=== PATIENT | female | born 1960 | race Caucasian/White ===

== ENCOUNTER 2016-03-07 15:45 | Emergency (ER) | payer SELFPAY ==
[2016-03-07 16:22] VITALS: TEMP 97.4; BMI 27.1
[2016-03-07] MEDS ORDERED: NS 1,000 ML IV ONE ×2 (18:32→19:22)
[2016-03-07] MEDS ORDERED: MORPHINE 4 MG/ML INJECTION IV ONE (18:32)
[2016-03-07] MEDS ORDERED: ONDANSETRON HCL 4 MG/2 ML VIAL IV ONE (18:32)
--- NOTE | 2016-03-07 18:38 | EDPRACDOC ---
- General Information Chief Complaint: Nausea,Vomiting,Diarrhea Stated Complaint: N/V/D Time Seen by Provider: 03/07/16 18:29 Information Source: Patient Mode Of Arrival: Ambulance Home Medications: Home Medications Amlodipine [Norvasc] 10 mg PO DAILY 03/07/16 Fluoxetine HCl [Prozac] 40 mg PO DAILY 03/07/16 Lisinopril [Zestril] 10 mg PO DAILY 03/07/16 Metoprolol Tartrate [Lopressor] 200 mg PO BID 03/07/16 Pravastatin [Pravachol] 40 mg PO HS 03/07/16 Promethazine [Phenergan] 25 mg PO Q6H PRN #10 tab 03/07/16 - History of Present Illness Onset: 10 am HPI: PT DEVELOPED N/V/D AROUND 1000. PT SAID IT WOULD NOT STOP, SO SHE CALLED EMS. Symptoms Occured: Reports: Spontaneous Duration: Reports: Since Onset Recent: Reports: None Pain Severity: None History of: Reports: Abdominal Surgery Relevant History of: Reports: Abdominal Surgery Associated Signs & Symptoms: Reports: Nausea, Vomiting, Diarrhea Oral Intake: Decreased Urinary Output: Decreased - Treatment Prior to ED Arrival Reported Medications/Treatment [facility]IST[facility] [employer] EMS Treatment BLS ED Past Medical History - Patient Medical History Cardiac History: Reports: Hypertension Respiratory History: Reports: Asthma Surgical History: Reports: Appendectomy, Tonsillectomy/Adnoidectomy - Social Medical History Smoking Status: Light tobacco smoker (less than 5/day) ETOH: None Substance Abuse: None Lives In: Home EDM Review of Systems - Review of Systems ROS Negative Except as Marked: Yes All systems reviewed and were negative except as marked Gastrointestinal: Diarrhea, Nausea, Vomiting - Physical Exam Constitutional: Alert (Awake), Distress Oriented to: Time, Person, Place Last recorded Vital Signs: Last Vital Signs Temp 97.4 F L 03/07/16 16:10 Pulse 72 03/07/16 16:10 Resp 20 03/07/16 16:10 BP 115/57 L 03/07/16 16:10 Pulse Ox 96 03/07/16 16:10 Oxygen Pulse Oxygen Saturation 96 O2 Device Room Air Oxygen Flow Rate Fraction of Inspired Oxygen ( FIO2) - HEENT Head: Normal ( normocephalic) Eye Exam: Normal (PERRL, EOMI, Sclera white) Oropharynx: Membranes Dry ENT EAC: Normal TMJ: Normal Nose: No Symptoms Reported (septum midline) Neck: Normal (FROM, trachea at midline) - Respiratory/Cardiovascular Respiratory: Normal - CTA Cardiovascular: Normal - GI Auscultation: Normal (NABS) Palpation: Normal (Soft,No rebound or guarding, non distended) Tenderness: Non tender Navarro's Sign: Negative - Musculoskeletal Back: Normal (Non-Tender) Extremities: Normal (Normal tone, Pulses 2+ No cyanosis or edema, FROM) - Integumentary Skin: Normal, Warm, Dry Lymphatics: Normal (no adenopathy) - Neurologic Memory Impaired: Normal Motor Function: Normal (Normal tone, Pulses 2+ No cyanosis or edema, FROM) Cranial Nerve: Normal (CN II-X11 intact sensation, strength 5/5) Cerebellar: Normal Mood Description: Normal Thought: Coherent Perception: Normal - Re-evaluation Re-evaluation 1 Re-evaluation Time: 20:57 (IMPROVED. NO DIARRHEA HERE.) - Results 03/07/16 18:56 03/07/16 18:56 Decision Time to Discharge: 20:57 - Departure Yes I personally saw and evaluated the patient. Disposition: Home Condition: Fair Final Diagnosis: Nausea and vomiting, Dehydration, Diarrhea Instructions: Acute Diarrhea (ED) Education/Counseling Given To: Patient Education/Counseling Given Regarding: Diagnosis, Treatment, Follow Up Referrals: None,No Provider [Primary Care Provider] - One Week Rogelio Petersen II, MD [Staff Physician] - One Week Prescriptions: Promethazine [Phenergan] 25 mg PO Q6H PRN #10 tab PRN Reason: Nausea/Vomiting
[2016-03-07 19:20] LABS: BLOOD UREA NITROGEN 20 MG/DL (7-17); CALCIUM 10.3 MG/DL (8.4-10.2); CALCULATED OSMOLALITY 287 MOs/Kg (270-290); CHLORIDE 105 mEq/L (98-107); GLUCOSE 147 MG/DL (70-99); SODIUM LEVEL 146 mEq/L (137-146)
[2016-03-07 19:39] LABS: SEG NEUTROPHIL 89 % (45-76)
[2016-03-07 20:52] LABS: LEUKOCYTES/URINE NEG (NEGATIVE); NITRITE/URINE NEG (NEGATIVE); URINE OCCULT BLOOD 1+ (NEG/TRACE); WBC/URINE 0-2 (0-5)
[2016-03-07 21:25] VITALS: BP 121/62; PULSE 75
== END 2016-03-07 21:28 | disposition home or self-care (01) ==
LOC: ED 15:45
DX: R11.2 Nausea with vomiting, unspecified (principal); E86.0 Dehydration; R19.7 Diarrhea, unspecified; I10 Essential (primary) hypertension; J45.909 Unspecified asthma, uncomplicated; F17.210 Nicotine dependence, cigarettes, uncomplicated; Z79.899 Other long term (current) drug therapy
CPT/HCPCS: 36415; 80053; 81001; 85007; 85027; 96361; 96374; 99284; J2405; J2270